=== PATIENT | female | born 1980 ===

== ENCOUNTER 2021-06-07 13:32 | Outpatient (REF) | payer MEDICAID, SELFPAY ==
[2021-06-07 16:27] LABS: Calculated LDL 156 mg/dL (<100); Cholesterol 223 mg/dL (<200); Glucose 86 mg/dL (74-106); HDL Cholesterol 53 mg/dL (40-60); TSH (W/Ref FT4) 0.69 uIU/mL (0.36-3.74); Triglyceride 70 mg/dL (<150)
[2021-06-07 16:28] LABS: Vitamin D 25 Total 39.2 ng/mL (30-100)
== END 2021-06-07 13:33 | disposition home or self-care (01) ==
LOC: NCHCN 13:32
PROVIDERS: Visit Provider Nurse Practitioner Family
DX: F41.8 Other specified anxiety disorders (principal); Z13.220 Encounter for screening for lipoid disorders; R73.9 Hyperglycemia, unspecified; F32.9 Major depressive disorder, single episode, unspecified; R63.5 Abnormal weight gain
CPT/HCPCS: 80061; 82306; 82947; 84443